=== PATIENT | female | born 1935 | race Caucasian/White ===

== ENCOUNTER → 2021-01-03 | Outpatient (CLI) | payer MEDICARE, BC ==
--- NOTE | 2021-01-03 08:54 | XR ---
EXAMINATION TYPE: XR scoliosis survey DATE OF EXAM: 01/03/2021 COMPARISON: NONE HISTORY: pain TECHNIQUE: scoliosis survey FINDINGS: 34 degree rotoscoliosis of the lumbar spine convex to the left. Scoliosis of the thoracic s pine convex to the right of 20 degrees. Severe multilevel degenerative disc space narrowing and spond ylosis. IMPRESSION: S-shaped scoliosis as discussed above.
== END | disposition home or self-care (01) ==
LOC: RADXRMAIN 07:52
PROVIDERS: ATTEND Internal Medicine
DX: M41.84 Other forms of scoliosis, thoracic region (principal)
CPT/HCPCS: 36415; 71260; 72082; 74177

== ENCOUNTER → 2021-01-03 | Outpatient (CLI) | payer MEDICARE, BC ==
[2021-01-03 08:59] LABS: Basophils % (A) 0 %; Eosinophils # (A) 0.1 k/uL (0-0.7); Eosinophils % (A) 1 %; HGB 12.2 gm/dL (11.4-16.0); Hypochromasia Slight; Lymphocytes # (A) 1.2 k/uL (1.0-4.8); Lymphocytes % (A) 15 %; MCH 28.9 pg (25.0-35.0); MCHC 32.1 g/dL (31.0-37.0); MCV 89.9 fL (80.0-100.0); Mean Platelet Volume 7.2; Monocytes # (A) 0.6 k/uL (0-1.0); Monocytes % (A) 8 %; Neutrophils # (A) 6.1 k/uL (1.3-7.7); Neutrophils % (A) 75 %; Platelet Count 339 k/uL (150-450); RBC 4.22 m/uL (3.80-5.40); RDW 13.9 % (11.5-15.5); WBC 8.2 k/uL (3.8-10.6)
[2021-01-03 09:09] LABS: Potassium 4.6 mmol/L (3.5-5.1); Total Bilirubin 0.7 mg/dL (0.2-1.3); Total Protein 7.3 g/dL (6.3-8.2)
--- NOTE | 2021-01-03 22:30 | CT ---
"EXAMINATION TYPE: CT ChestAbdPelvis w con DATE OF EXAM: 01/03/2021 INDICATION: cholangiocarcinoma COMPARISON: CTA chest 10/25/2011 CT DLP: 645.8 mGycm CONTRAST: Performed with Oral Contrast and with IV Contrast, patient injected with 100 mL of Isovue 300. TECHNIQUE: Axial images at 5 mm thick sections. Reconstructed images in the coronal plane. Delayed images through the kidneys. FINDINGS: CT CHEST: Portion of the thyroid visualized is normal. There is some linear opacity at the posterior lateral right apex, series 4 image 11. This is nonspeci fic. Scarring is favored as this appears stable from 2010. No enlarged mediastinal or hilar adenopathy is evident. The ascending aorta diameter at the level of the main pulmonary artery is 2.5 cm. The main pulmonary artery diameter at the bifurcation is 3.[address] ABDOMEN: Liver: Heterogenous. There is a large masslike area in the right lobe measuring approximately 8.3 cm in diameter. Smaller 3.7 cm irregular hypodensities in the anterior right lobe liver. Findings are corbin spicious for metastatic disease. Smaller lesions are within the left lobe liver. Additional lesions a re within the right lobe liver. No biliary dilatation is evident. Spleen: Normal Pancreas: Normal Adrenal glands: The adrenal glands are normal. 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 No masses are evident. No hydronephrosis is pr esent. There is a 1.6 cm cyst on the superior medial left kidney. Delayed images were obtained thr ough the kidneys, which remain unremarkable. Aorta: Vascular calcification is within the aorta. Inferior vena cava: Normal. CT PELVIS: Loops of bowel within the abdomen and pelvis are normal. There are loops of bowel which are incom pletely distended or lack oral contrast limiting their evaluation. Appendix: Visualized. No suspicious inflammatory changes or dilated tubular structures evident. Urinary bladder: Nondiagnostic due to beam hardening artifact from bilateral hip prostheses. Genitourinary structures: Nondiagnostic due to beam hardening artifact from bilateral hip prostheses. Osseous structures: No suspicious lytic or sclerotic lesions. IMPRESSIONS: 1. Large irregular hepatic masses, largest greater than 8 centimeters in the right lobe compatible wi th metastatic disease. Metastatic disease within both left and right lobes of the liver. A Yellow level critical message alert has been initiated for Efrain Wilson MD via the [employer] | Critical Results System on 01/03/2021 10:27 PM. This message alert has been sent to Efrain Wilson MD vi a the preferences provided by the clinician for the receipt of Radiology Critical Findings. Message I [id number]."
== END | disposition home or self-care (01) ==
LOC: RADCTMAIN 07:36
PROVIDERS: ATTEND Internal Medicine Hematology & Oncology
DX: C78.7 Secondary malignant neoplasm of liver and intrahepatic bile duct (principal); R16.0 Hepatomegaly, not elsewhere classified
CPT/HCPCS: 80053; 85025; 71260; 74177; 36415; Q9967

== ENCOUNTER → 2021-05-23 | Outpatient (CLI) | payer MEDICARE, BC ==
--- NOTE | 2021-05-23 12:14 | CT ---
EXAMINATION TYPE: CT ChestAbdPelvis w con DATE OF EXAM: 05/23/2021 COMPARISON: 01/03/2021 HISTORY: Cholangio ca. CT DLP: 511.6 mGycm CONTRAST: CT scan of the chest, abdomen and pelvis is performed with Oral Contrast and with IV Contrast, patien t injected with 80 mL of Isovue M300. CT Chest: LUNGS: The lungs are clear and free of infiltrate or atelectasis. No pulmonary nodule or mass is det ected. No pleural effusion or CT evidence of interstitial lung disease. MEDIASTINUM: Thoracic aorta is of normal caliber. The heart is not enlarged. No evidence for media stinal mass or adenopathy. HILAR STRUCTURES: No evidence for mass. No hilar adenopathy is appreciated. OTHER: No significant abnormality. CONTRAST CT ABDOMEN AND PELVIS FINDINGS: LIVER/GB: Hepatic mass of the posterior segment right hepatic lobe persists and is smaller in size an d measures 4.5 cm versus 8.3 cm previously. Additional lesions within the dome of the liver as well a s within the anterior segment right hepatic lobe as well as medial segment left hepatic lobe persists however are smaller in size as well. No evidence for new mass. PANCREAS: No inflammation. No distinct mass. SPLEEN: No splenic enlargement. No lesion seen. ADRENALS: No nodule. No thickening. KIDNEYS/BLADDER: No hydronephrosis. No nephrolithiasis. No disctinct renal mass. BOWEL: Normal appendix. Normal bowel caliber. No inflammation. GENITAL ORGANS: No gross abnormality. LYMPH NODES: No greater than 1cm abdominal or pelvic lymph nodes are appreciated. AORTA: No significant abnormality. OSSEOUS STRUCTURES: Bilateral hip prostheses resulting in streak artifact limiting evaluation of the pelvis. OTHER: No significant additional abnormality is seen. IMPRESSION: 1. Hepatic lesions and dominant mass persist although are smaller in size as no new lesions are seen.
== END | disposition home or self-care (01) ==
LOC: RADCTMAIN 09:32
PROVIDERS: ATTEND Internal Medicine Hematology & Oncology
DX: C22.1 Intrahepatic bile duct carcinoma (principal); K76.9 Liver disease, unspecified
CPT/HCPCS: 71260; 74177; Q9967 ×2

== ENCOUNTER → 2021-08-01 | Outpatient (CLI) | payer MEDICARE, BC ==
--- NOTE | 2021-08-01 12:56 | CT ---
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 CT chest abdomen and pelvis May 23, 2021 CT DLP: 297 (accession [id number]), 1352 (accession [id number]) mGycm. Automated Exposure Control for Do se Reduction was Utilized. TECHNIQUE: CT scan of the neck is performed with IV Contrast, patient injected with 100 mL of Isovue 300, axial images are obtained, coronal and sagittal reformatted images are reviewed. FINDINGS: Neck: Airway: Thyroid gland small in size or surgically absent. Adjacent left sided surgical clips noted at level of the vocal cords. Parotid/submandibular glands: No gross abnormality seen. Carotid/Vascular Structures: Mild to moderate calcified plaque bilateral carotid bulb levels without significant stenosis. Osseous Structures: Long segment surgical change to the cervical spine redemonstrated. There is anter ior thin-walled cystic change right C6 level on CT which corresponds with outside MRI. Left-sided thi n-walled cystic change seen better on MRI versus CT, possibly improved. There is destruction of the m ajority of the C3 vertebra image 50 similar to prior MRI. Other: Nasal septum deviated to right of midline. No definitive abnormal greater than 1 cm neck adeno matthew. CAP: LUNGS: Mild biapical pleural/parenchymal scarring redemonstrated. No new nodules or masses. There is no pleural effusion or pneumothorax seen. The tracheobronchial tree is patent. MEDIASTINUM: There are no greater than 1 cm hilar or mediastinal lymph nodes. No pericardial effusi on is seen. Cardiomegaly with dual lead pacemaker redemonstrated. Enlarged right and left pulmonary arteries consistent with underlying pulmonary hypertension again seen. Other: Focal asymmetrically prominent tissue right breast axial image 44 is unchanged from prior stud ies. LIVER/GB: Continued decrease in size to liver with lobulated contour. Continued improvement in hetero geneous hypodense masses in prior studies. Some artifact along the posterior right hepatic lobe noted from the patient's adjacent right upper extremity. Lesions now are difficult to accurately measure. Largest lesion right hepatic lobe measures 3.5 cm long axis, study image 58 versus 5.4 cm most recent prior study image 58. Trace adjacent subcapsular edema axial image 58 current study. No new biliary dilatation. PANCREAS: Mild/moderate generalized atrophy redemonstrated.. SPLEEN: No significant abnormality is seen. ADRENALS: Slight thickening to both adrenal glands do not significant change from prior studies.. KIDNEYS: No hydronephrosis seen bilaterally. Stable incidental 1.5 cm thin-walled cyst medially upper pole left kidney image 56 series 7. BOWEL: Oral contrast reaches level of distal transverse colon. Poor distention of stomach makes evalu ation at this level suboptimal. Cannot exclude new diffuse gastric wall thickening. Correlate clinica lly. Some diverticula in the sigmoid colon. No suspicious small or large bowel dilatation. GENITAL ORGANS: Suboptimal evaluation. Scattered bilateral pelvic phleboliths redemonstrated. LYMPH NODES: No definitive new greater than 1cm abdominal or pelvic lymph nodes are appreciated. OSSEOUS STRUCTURES: Metallic hardware from bilateral hip arthroplasty causes streak artifact limiting evaluation of pelvic structures. Multilevel [id number] disc space narrowing and vacuum disc phenomenon in the lumbar spine. There is S-shaped scoliosis redemonstrated. Some scattered sclerotic foci throughout the osseous stru ctures to reference inferior L4 level limits 48 redemonstrated and nonspecific. No significant change from prior. OTHER: No significant additional abnormality is seen. IMPRESSION: Continued improving hepatic metastatic disease. Extensive surgical change cervical spine at site of prior metastatic disease shows no obvious interval progression. Some limitation due to str eak artifact from metallic hardware noted. No obvious new suspicious mass or adenopathy.
== END | disposition home or self-care (01) ==
LOC: RADCTMAIN 09:41
PROVIDERS: ATTEND Internal Medicine Hematology & Oncology
DX: C22.1 Intrahepatic bile duct carcinoma (principal); C79.51 Secondary malignant neoplasm of bone
CPT/HCPCS: 82565; 84520; 70491; 71260; 74177; 36415; Q9967